=== PATIENT | female | born 1995 | race Caucasian/White ===

== ENCOUNTER 2021-12-11 07:32 | Emergency (ER) | payer SELFPAY ==
[2021-12-11] MEDS ORDERED: Doxycycline 100 MG Cap PO STA (08:32)
[2021-12-11] MEDS ORDERED: Ketorolac 30 MG/ML SDV IM ONE (08:32)
== END 2021-12-11 09:05 | disposition home or self-care (01) ==
LOC: MW.ED 07:32
DX: L03.116 Cellulitis of left lower limb (principal); L02.416 Cutaneous abscess of left lower limb; Z88.0 Allergy status to penicillin
CPT/HCPCS: 96372; 99282; A9270; J1885; 99283

== ENCOUNTER 2022-03-31 10:18 | Emergency (ER) | payer OTHER | END 2022-03-31 12:37 | disposition home or self-care (01) | LOC: MW.ED 10:18 | DX: H66.92 Otitis media, unspecified, left ear (principal); B34.9 Viral infection, unspecified; Z88.0 Allergy status to penicillin; Z79.899 Other long term (current) drug therapy | CPT/HCPCS: 93010; 99283 ==

== ENCOUNTER 2022-04-06 04:42 | Emergency (ER) | payer OTHER ==
[2022-04-06] MEDS ORDERED: Azithromycin 250 MG Tab PO ONE (05:21)
== END 2022-04-06 05:31 | disposition home or self-care (01) ==
LOC: MW.ED 04:42
DX: O99.891 Other specified diseases and conditions complicating pregnancy (principal); H66.93 Otitis media, unspecified, bilateral; H60.93 Unspecified otitis externa, bilateral; Z88.1 Allergy status to other antibiotic agents; Z88.0 Allergy status to penicillin; Z3A.16 16 weeks gestation of pregnancy
CPT/HCPCS: 82947; 99283; A9270; 99282

== ENCOUNTER 2022-04-28 12:59 | Emergency (ER) | payer SELFPAY | END 2022-04-28 15:08 | disposition home or self-care (01) | LOC: MW.ED 12:59 | DX: H60.91 Unspecified otitis externa, right ear (principal); J45.909 Unspecified asthma, uncomplicated; Z88.0 Allergy status to penicillin | CPT/HCPCS: 99282 ==

== ENCOUNTER 2023-05-01 11:55 | Emergency (ER) | payer MEDICAID, OTHER ==
[2023-05-01 12:28] LABS: APPEARANCE,URINE CLEAR; BILIRUBIN,URINE NEGATIVE (NEGATIVE); COLOR,URINE YELLOW; GLUCOSE,URINE NEGATIVE (NEGATIVE); KETONES,URINE NEGATIVE (NEGATIVE); LEUKOCYTE ESTERASE,URINE NEGATIVE (NEGATIVE); NITRITE,URINE NEGATIVE (NEGATIVE); OCCULT BLOOD,URINE NEGATIVE (NEGATIVE); PROTEIN,URINE NEGATIVE (NEGATIVE); UROBILINOGEN,URINE 0.2 EU/dL (<2.0)
[2023-05-01 13:11] LABS: CORONAVIRUS COVID-19 NAA NEGATIVE (NEGATIVE); INFLUENZA A NAA NEGATIVE (NEGATIVE); INFLUENZA B NAA NEGATIVE (NEGATIVE)
== END 2023-05-01 13:51 | disposition home or self-care (01) ==
LOC: MW.ED 11:55
DX: J01.90 Acute sinusitis, unspecified (principal); Z39.1 Encounter for care and examination of lactating mother; Z20.822 Contact with and (suspected) exposure to COVID-19
CPT/HCPCS: 0240U; 81003; 81025; 99283

== ENCOUNTER 2023-07-09 09:20 | Emergency (ER) | payer MEDICAID ==
[2023-07-09 10:53] LABS: CORONAVIRUS COVID-19 NAA NEGATIVE (NEGATIVE); INFLUENZA A NAA NEGATIVE (NEGATIVE); INFLUENZA B NAA NEGATIVE (NEGATIVE)
== END 2023-07-09 10:58 | disposition home or self-care (01) ==
LOC: MW.ED 09:20
DX: J03.90 Acute tonsillitis, unspecified (principal); Z88.1 Allergy status to other antibiotic agents
CPT/HCPCS: 0240U; 87651; 99283

== ENCOUNTER 2025-01-13 08:48 | Emergency (ER) | payer MEDICAID | END 2025-01-13 10:36 | disposition home or self-care (01) | LOC: MW.ED 08:48 | DX: M79.671 Pain in right foot (principal); Z88.0 Allergy status to penicillin; Z88.1 Allergy status to other antibiotic agents | CPT/HCPCS: 73610-26-RT; 73610-RT; 73630-26-RT; 73630-RT; 99282; 99283 ==